=== PATIENT | female | born 1950 | race African-American/Black ===

== ENCOUNTER 2017-04-08 09:48 | Emergency (ER) | payer OTHER ==
[~2017-04-08] VITALS: Ht 165.1 cm; Wt 100.0 kg
[2017-04-08] MEDS ORDERED: PREDNISONE 20MG TABLET PO STA (11:13)
[2017-04-08] MEDS ORDERED: IPRATROPIUM BROMIDE (0.02%) 0.5MG/2.5ML NEB HHN STA (11:13)
[2017-04-08] MEDS ORDERED: DIPHENHYDRAMINE 50MG/ML VIAL IV ONE (11:15)
[2017-04-08 12:11] LABS: HEMATOCRIT. 42.7 % (36.0-48.0); HEMOGLOBIN. 13.2 g/dL (12.0-16.0); MEAN CORPUSCULAR HEMOGLOBIN 21.8 pg (28.0-32.0); MEAN CORPUSCULAR VOLUME 70.3 fL (81.0-99.0); MEAN PLATELET VOLUME 8.1 fl (7.4-10.4); PLATELET 300 x1000/uL (130-400); RED BLOOD CELL COUNT 6.07 mill/uL (4.2-5.4); RED CELL DISTRIBUTION WIDTH 15.8 % (11.6-14.6)
[2017-04-08 12:24] LABS: CARBON DIOXIDE 27 mEq/L (21-32); CHLORIDE 102 mEq/L (98-107)
[2017-04-08 12:29] LABS: TROPONIN I < 0.02 ng/mL (0.00-0.04)
[2017-04-08] MEDS ORDERED: IPRATROPIUM/ALBUTEROL 0.5-3(2.5)MG/3ML NEB HHN ONE (12:45)
[2017-04-08 13:01] LABS: INR 1.1; PROTHROMBIN TIME 11.9 sec
[2017-04-08 13:26] LABS: PLATELET ESTIMATE NORMAL
[2017-04-08] MEDS ORDERED: IPRATROPIUM BROMIDE (0.02%) 0.5MG/2.5ML NEB HHN ONE (14:00)
[2017-04-08 14:43] VITALS: BP 162/78
== END 2017-04-08 15:10 | disposition short-term general hospital (02) ==
LOC: ER 10:31
DX: J45.901 Unspecified asthma with (acute) exacerbation (principal); R53.1 Weakness; E87.6 Hypokalemia; E86.0 Dehydration; E87.2 Acidosis; E66.01 Morbid (severe) obesity due to excess calories; Z68.36 Body mass index [BMI] 36.0-36.9, adult
CPT/HCPCS: 36415; 71010; 80053; 83605; 83690; 83880; 84484; 85025; 85610; 87040; 93005; 96374; 99285; J1200; J7512; J7620

== ENCOUNTER 2024-10-13 14:31 | Emergency (ER) | payer OTHER ==
[~2024-10-13] VITALS: Ht 170.2 cm; Wt 80.0 kg
[2024-10-13 14:40] VITALS: O2SAT 98
[2024-10-13 16:54] LABS: BASOPHILS % 0.6 % (0.0-2.0); DIFFERENTIAL COMMENT 0; EOSINOPHILS % 1.5 % (0.0-5.0); HEMATOCRIT. 45.9 % (36.0-48.0); HEMOGLOBIN. 14.2 g/dL (12.0-16.0); LYMPHOCYTES % 12.6 % (20.0-50.0); MEAN CORPUSCULAR HGB CONC 30.8 g/dL (31.0-37.0); MEAN CORPUSCULAR VOLUME 71.4 fL (81.0-99.0); NEUTROPHILS % 81.3 % (40.0-76.0); PLATELET 357 x1000/uL (130-400); RED BLOOD CELL COUNT 6.43 mill/uL (4.2-5.4); RED CELL DISTRIBUTION WIDTH 15.5 % (11.6-14.6); WHITE BLOOD COUNT 10.4 x1000/uL (4.5-11.0)
[2024-10-13 17:00] LABS: CHLORIDE 102 mEq/L (98-107); POTASSIUM 5.1 mEq/L (3.5-5.1); SODIUM 137 mEq/L (136-145)
[2024-10-13 17:01] LABS: CALCIUM 10.7 mg/dL (8.7-10.4); CARBON DIOXIDE 26 mEq/L (21-32)
[2024-10-13 17:06] LABS: CREATININE 1.4 mg/dL (0.6-1.0); GLUCOSE 101 mg/dL (70-105); UREA NITROGEN BLOOD 19 mg/dL (9-23)
[2024-10-13 17:07] LABS: TROPONIN I HIGH SENSITIVITY 4 ng/L (3.0-34)
[2024-10-13 17:08] LABS: ALANINE AMINOTRANSFERASE 19 IU/L (10-49); ALBUMIN 5.3 g/dL (3.2-4.8); ASPARTATE AMINOTRANSFERASE 44 IU/L (<34); BILIRUBIN TOTAL 0.5 mg/dL (0.1-1.0)
[2024-10-13 17:09] LABS: PROTEIN TOTAL 8.6 g/dL (6.0-8.3)
[2024-10-13 18:41] VITALS: BP 130/70; PULSE 70; RESP 20; TEMP 37.00296; O2SAT 98
== END 2024-10-13 18:55 | disposition home or self-care (01) ==
LOC: ER 14:36
DX: R55 Syncope and collapse (principal); E78.5 Hyperlipidemia, unspecified; I10 Essential (primary) hypertension
CPT/HCPCS: 36415; 71045; 80053; 84484; 85025; 93005; 99285